=== PATIENT | male | born 1975 | race Caucasian/White ===

== ENCOUNTER 2020-09-30 23:08 | Emergency (ER) | payer OTHER ==
[~2020-09-30] VITALS: Ht 165.1 cm; Wt 72.1 kg
--- NOTE | 2020-09-30 23:30 | NUR ---
PT BIBA FROM [facility]/T CHRONIC NECK PAIN. PT AAOX3, VSS, RESPIRATIONS EVEN AND UNLABORED ON RA W/ NAD NOTED. PT CONNECTED TO THE MONITOR AND POX
[2020-09-30 23:50] LABS: BASOPHILS # (AUTO) 0.1 /CMM (0.0-0.2); BASOPHILS % (AUTO) 0.9 % (0.0-2.0); EOSINOPHILS % (AUTO) 2.2 % (0.0-6.0); HEMATOCRIT 43 % (39-51); HEMOGLOBIN 14.4 g/dL (13.5-17.5); LYMPHOCYTES # (AUTO) 3.6 /CMM (0.8-4.8); LYMPHOCYTES % (AUTO) 32.5 % (20.0-44.0); MEAN CORPUSCULAR HGB CONC 34 g/dl (31.0-36.0); MEAN CORPUSCULAR VOLUME 87 fL (80-96); MONOCYTES # (AUTO) 0.7 /CMM (0.1-1.30); MONOCYTES % (AUTO) 6.7 % (2.0-12.0); NEUTROPHILS # (AUTO) 6.4 /CMM (1.8-8.9); NEUTROPHILS % (AUTO) 57.7 % (43.0-81.0); PLATELET COUNT (AUTO) 243 /CMM (150-450); RED BLOOD CELL COUNT(AUTO) 4.92 MIL/uL (4.5-6.0); WHITE BLOOD COUNT (AUTO) 11.1 K/uL (4.3-11.0)
[2020-10-01 00:01] LABS: CALCIUM, SERUM 9.3 mg/dL (8.5-10.1); CARBON DIOXIDE 26 mmol/L (21-32); CHLORIDE 103 mmol/L (98-107); CREATININE 1.2 mg/dL (0.6-1.3); GLUCOSE 102 mg/dL (74-106); POTASSIUM 3.8 mmol/L (3.5-5.1); SODIUM SERUM 138 mmol/L (136-145); UREA NITROGEN, BLOOD 19 mg/dL (7-18)
[2020-10-01 00:06] LABS: ALANINE AMINOTRANSFERASE 29 U/L (12-78); ALBUMIN 3.7 g/dL (3.4-5.0); ALCOHOL, BLOOD < 3 mg/dL (0-0); ALKALINE PHOSPHATASE 44 U/L (46-116); ASPARTATE AMINOTRANSFERASE 16 U/L (15-37); BILIRUBIN,DIRECT 0.1 mg/dL (0.0-0.2); BILIRUBIN,TOTAL 0.3 mg/dL (0.2-1.0); TOTAL PROTEIN, SERUM 6.9 g/dL (6.4-8.2)
--- NOTE | 2020-10-01 00:19 | NUR ---
PT BACK FROM [place]
[2020-10-01] MEDS ORDERED: LEVETIRACETAM (500MG) 500 MG/5 ML VIAL IV ONE (00:20)
[2020-10-01] MEDS ORDERED: LEVETIRACETAM (500MG) 500 MG in IV NS 0.9% 100 ML IV SCH (00:30)
[2020-10-01] MEDS ORDERED: TRAMADOL HCL 50 MG TABLET ONE (00:39)
[2020-10-01] MEDS ORDERED: TRAMADOL HCL 50 MG TABLET PO ONE (01:00)
--- NOTE | 2020-10-01 02:23 | NUR ---
CLINICALS FAXED TO [facility]
--- NOTE | 2020-10-01 03:12 | NUR ---
ACCEPTED TO [facility]
--- NOTE | 2020-10-01 03:43 | NUR ---
[facility] CALL[facility] FOR BLS TRANSPORT. PENDING ETA
--- NOTE | 2020-10-01 04:14 | NUR ---
REPORT GIVEN [facility]
--- NOTE | 2020-10-01 05:32 | NUR ---
[facility] ETA: 0700 PER CALL- THE - [facility]
--- NOTE | 2020-10-01 06:36 | NUR ---
Patient is resting comfortably in bed with eyes closed. Easily aroused. VSS
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
--- NOTE | 2020-10-01 07:14 | NUR ---
REPORT GIVEN TO BRENT TAPIA FOR [facility]
--- NOTE | 2020-10-01 07:29 | NUR ---
REPORT GIVEN TO EMS. PT STABLE FOR TRANSFER
[2020-10-01 07:30] VITALS: BP 118/74
--- NOTE | 2020-10-01 07:32 | NUR ---
Patient discharged to [facility] in stable condition. Written and verbal after care instructions given. Patient verbalizes understanding of instruction.
== END 2020-10-01 07:35 ==
LOC: ER 23:13
DX: S16.1XXA Strain of muscle, fascia and tendon at neck level, initial encounter (principal); G40.909 Epilepsy, unspecified, not intractable, without status epilepticus; F19.10 Other psychoactive substance abuse, uncomplicated; R51.9 Headache, unspecified; I10 Essential (primary) hypertension; X58.XXXA Exposure to other specified factors, initial encounter; Y93.89 Activity, other specified; Y92.89 Other specified places as the place of occurrence of the external cause; Y99.8 Other external cause status
CPT/HCPCS: 36415; 70450; 71045; 72125; 80048; 80076; 80320; 85025; 96365; 99285; J1953 ×2; J7030; G0480